=== PATIENT | male | born 1955 | race Caucasian/White ===

== ENCOUNTER 2016-11-29 12:15 | Inpatient (IN) | payer OTHER ==
[2016-11-29] MEDS ORDERED: ACETAMINOPHEN 325 MG TAB PO PRN (12:43)
[2016-11-29] MEDS ORDERED: DOFETILIDE 0.25 MG CAP PO SCH (13:00)
[2016-11-29 13:21] LABS: % IMMATURE GRANULYOCYTES 0.2 % (0.0-1.1); ABSOLUTE IMMATURE GRANULOCYTES 0.01 10^3/uL (0.00-0.10); ADD DIFF? NO; ADD MORPH? NO; ADD SCAN? NO; ATYPICAL LYMPHOCYTE FLAG 10 (0-99); FRAGMENT RBC FLAG 0 (0-99); HEMATOCRIT 41.7 % (40.0-51.0); HEMOGLOBIN 14.8 g/dL (13.7-17.5); LEFT SHIFT FLG 0 (0-99); LIPEMIA HEMOLYSIS FLAG 90 (0-99); MEAN CELL HEMOGLOBIN 31.8 pg (27.9-34.1); MEAN CELL HEMOGLOBIN CONCENTR. 35.5 g/dL (32.4-36.7); MEAN CELL VOLUME 89.5 fL (81.5-99.8); MEAN PLATELET VOLUME 10.8 fL (8.7-11.7); PLATELET CLUMPS FLAG 10 (0-99); PLATELET COUNT 174 10^3/uL (150-400); RED BLOOD CELL COUNT 4.66 10^6/uL (4.40-6.38); RED CELL DISTRIBUTION WIDTH 11.9 % (11.5-15.2)
[2016-11-29 13:35] LABS: INR 1.22 (0.83-1.16); PROTIME(PATIENT) 15.4 SEC (12.0-15.0)
[2016-11-29 13:36] LABS: APTT 28.1 SEC (23.0-38.0)
[2016-11-29 13:43] LABS: ANION GAP 11 mEq/L (8-16); CALCIUM 8.7 mg/dL (8.5-10.4); CARBON DIOXIDE 24 mEq/l (22-31); CHLORIDE 106 mEq/L (97-110); CREATININE 0.8 mg/dL (0.7-1.3); GLOMERULAR FILTRATION RATE > 60; GLUCOSE 88 mg/dL (70-100); POTASSIUM 4.3 mEq/L (3.5-5.2); SODIUM 141 mEq/L (134-144)
--- NOTE | 2016-11-29 13:52 | CPEKG ---
Heart Rate: 87 RR Interval: 690 P-R Interval: 176 QRSD Interval: 144 QT Interval: 432 QTC Interval: 520 P [place]: 0 QRS [place]: 265 T Wave [place]: 40 EKG Severity - ABNORMAL ECG - EKG Impression: A-V DUAL-PACED COMPLEXES EKG Impression: PVC Electronically Signed By: Geronimo Monroe 29-Nov-2016 17:44:14
[2016-11-29] MEDS: DOFETILIDE 0.125 MG CAP PO SCH ×2 (14:25→22:06)
--- NOTE | 2016-11-29 14:27 | PDCARPN ---
Cardiology Progress Note Chief Complaint: PAF Assessment/Plan: Assessment/plan: Please see office note in chart for details. Jose Antonio is a 60 y/o M who presented in 10/31 with a CVA, atrial fibrillation and EF of 20%. He had normal coronaries at that time. He also has a history of NSVT s/p ICD. His EF has improved to 40%. He was found to be in a.fib for the past 2 months with associated head fogginess and COHEN. He is admitted today for tikosyn loading. 11/29/16 14:23 Subjective: Pt denies any CP, SOB, of dizziness. Objective: Vital Signs (8 Hrs) Temp Pulse Resp BP Pulse Ox 11/29/16 12:38 36.7 C 76 16 98/60 L 96 Intake/Output (24 Hrs) 11/28/16 11/29/16 11/30/16 05:59 05:59 05:59 Other: Weight 78.2 kg Result Diagrams: 11/29/16 13:10 11/29/16 13:10 EKG: a.fib with V pacing - Physical Exam Constitutional: WDWN Cardiovascular: regular rate and rhythm, systolic murmur Respiratory: clear to auscultate bilat, no crackles, no wheezes Skin: no edema Neurologic: AAOx3 ICD10 Worksheet Patient Problems: Problems Problem Status Diagnosed Bradycardia Acute CVA (cerebral vascular accident) Acute Elevated troponin Acute
--- NOTE | 2016-11-29 16:18 | CPEKG ---
Heart Rate: 78 RR Interval: 769 QRSD Interval: 130 QT Interval: 456 QTC Interval: 520 QRS [place]: 238 T Wave [place]: 43 EKG Severity - ABNORMAL ECG - EKG Impression: AFIB/FLUT AND V-PACED COMPLEXES Electronically Signed By: Geronimo Monroe 29-Nov-2016 17:43:46
[2016-11-29] MEDS: CARVEDILOL 6.25 MG TAB PO SCH (18:39)
[2016-11-29] MEDS ORDERED: TEMAZEPAM 15 MG CAP PO SCH (21:00)
[2016-11-29] MEDS: LISINOPRIL 5 MG TAB PO SCH (21:18)
[2016-11-29] MEDS: APIXABAN 5 MG TAB PO SCH (21:18)
[2016-11-29] MEDS: TEMAZEPAM 7.5 MG PO SCH (22:29)
--- NOTE | 2016-11-30 00:01 | CPEKG ---
Heart Rate: 75 RR Interval: 800 P-R Interval: 152 QRSD Interval: 138 QT Interval: 488 QTC Interval: 546 P [place]: 108 QRS [place]: 240 T Wave [place]: 49 EKG Severity - ABNORMAL ECG - EKG Impression: ATRIAL-VENTRICULAR DUAL-PACED RHYTHM Electronically Signed By: Geronimo Monroe 01-Dec-2016 08:35:05
[2016-11-30 05:52] LABS: ANION GAP 5 mEq/L (8-16); CALCIUM 8.5 mg/dL (8.5-10.4); CARBON DIOXIDE 28 mEq/l (22-31); CHLORIDE 106 mEq/L (97-110); CREATININE 0.9 mg/dL (0.7-1.3); GLOMERULAR FILTRATION RATE > 60; GLUCOSE 86 mg/dL (70-100); POTASSIUM 4.2 mEq/L (3.5-5.2); SODIUM 139 mEq/L (134-144)
[2016-11-30 05:58] LABS: INR 1.25 (0.83-1.16); PROTIME(PATIENT) 15.7 SEC (12.0-15.0)
[2016-11-30] MEDS: ATORVASTATIN CALCIUM 40 MG TAB PO SCH (09:40)
[2016-11-30] MEDS: LISINOPRIL 5 MG TAB PO SCH ×2 (09:40→20:18)
[2016-11-30] MEDS: APIXABAN 5 MG TAB PO SCH ×2 (09:40→20:18)
[2016-11-30] MEDS: CARVEDILOL 6.25 MG TAB PO SCH ×2 (09:41→18:50)
[2016-11-30] MEDS: DOFETILIDE 0.125 MG CAP PO SCH ×2 (09:51→20:18)
--- NOTE | 2016-11-30 10:46 | SOAPPROG ---
SOAP Progress Note Assessment/Plan: Assessment/Plan: This is a 60 yr old male with past history of CVA, EF 40% BiV ICD, PAF. PAF: On OAC. Tikosyn loading., he is tolerating tikosyn based on his EKG as well as symptomatology CHF: Euvolemic Device: [place] well. Wound site is clean 11/30/16 10:44 Subjective: Pt feeling fine. No side effects from med Objective: Vital Signs Temp Pulse Resp BP Pulse Ox 36.6 C 74 18 112/72 96 11/30/16 07:50 11/30/16 07:50 11/30/16 07:50 11/30/16 07:50 11/30/16 07:50 Laboratory Results 11/29/16 13:10 11/30/16 05:22 11/29/16 11/30/16 12/01/16 05:59 05:59 05:59 Intake Total 750 Balance 750 PT 15.7 SEC (12.0-15.0) H 11/30/16 05:22 INR 1.25 (0.83-1.16) H 11/30/16 05:22 Physical Exam - Physical Exam General Appearance: alert, no apparent distress EENT: PERRL/EOMI, normal ENT inspection Neck: full range of motion, supple Respiratory: lungs clear, normal breath sounds, No respiratory distress Cardiac/Chest: regular rate, rhythm, No edema, No gallop Abdomen: normal bowel sounds, non-tender, soft Skin: normal color, warm/dry ICD10 Worksheet Patient Problems: Problems Problem Status Diagnosed Bradycardia Acute CVA (cerebral vascular accident) Acute Elevated troponin Acute
--- NOTE | 2016-11-30 12:23 | CPEKG ---
Heart Rate: 76 RR Interval: 789 P-R Interval: 164 QRSD Interval: 132 QT Interval: 488 QTC Interval: 549 P [place]: 120 QRS [place]: 240 T Wave [place]: 48 EKG Severity - ABNORMAL ECG - EKG Impression: ATRIAL-VENTRICULAR DUAL-PACED RHYTHM Electronically Signed By: Geronimo Monroe 01-Dec-2016 08:35:00
[2016-11-30] MEDS: TEMAZEPAM 7.5 MG PO SCH (22:03)
--- NOTE | 2016-11-30 22:29 | CPEKG ---
Heart Rate: 73 RR Interval: 822 P-R Interval: 172 QRSD Interval: 130 QT Interval: 484 QTC Interval: 534 P [place]: 116 QRS [place]: 238 T Wave [place]: 54 EKG Severity - ABNORMAL ECG - EKG Impression: ATRIAL-VENTRICULAR DUAL-PACED RHYTHM Electronically Signed By: Geronimo Monroe 01-Dec-2016 08:34:54
[2016-12-01] MEDS ORDERED: DOFETILIDE 0.25 MG CAP PO SCH
[2016-12-01 07:35] VITALS: BP 109/72; PULSE 74; RESP 12; TEMP 98.2; O2SAT 95
[2016-12-01] MEDS: LISINOPRIL 5 MG TAB PO SCH (08:50)
[2016-12-01] MEDS: CARVEDILOL 6.25 MG TAB PO SCH (08:50)
[2016-12-01] MEDS: ATORVASTATIN CALCIUM 40 MG TAB PO SCH (08:50)
[2016-12-01] MEDS: APIXABAN 5 MG TAB PO SCH (08:50)
[2016-12-01] MEDS: DOFETILIDE 0.125 MG CAP PO SCH (08:51)
--- NOTE | 2016-12-01 11:00 | GDS ---
[f rep st] DISCHARGE SUMMARY HISTORY: This is a 60-year-old patient with past medical history of CVA, atrial fibrillation, ejecti on fraction of 20%, normal coronaries, whose EF did not recover adequately and then a Bi V ICD was im planted, after which the patient continued to have atrial fibrillation and some mental fogginess, hea daches on and off and dyspnea and hence, it was decided to attempt Tikosyn since he is too young for amiodarone and his ejection fraction is lower than 40%. PAST MEDICAL HISTORY: CHF NYHA class 2, AFib, anxiety, Bi V AICD, cardiomyopathy, CVA, nonsustained VT. PAST SURGICAL HISTORY: Arthroscopic shoulder surgery. MEDICATIONS: Atorvastatin 40 once a day, Coreg 6.25, Eliquis 5 mg twice a day, lisinopril 5 mg once a day, temazepam as needed. ALLERGIES: None. 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 No significant alcohol use. Nonsmoker. REVIEW OF SYSTEMS: Other than above, negative. PHYSICAL EXAM: VITAL SIGNS: Blood pressure 110/70, pulse of 80, respiratory rate 16. HEENT: Pupil s equal, reacting to light and accommodating. NECK: No lymphadenopathy. No thyromegaly. No JVD. CHEST: Good air entry bilaterally, equal. No rales, rhonchi. CARDIOVASCULAR: S1, S2. Irregular. No murmurs. ABDOMEN: Soft, nontender. No guarding. Bowel sounds present. EXTREMITIES: No edema . HOSPITAL COURSE: The patient was admitted to the hospital and was started on Tikosyn 500 mcg b.i.d. Serial EKGs were taken. The JT point did not change significantly. The patient continued to do wel l without any side effects from the medication. Hence, it was decided to discharge the patient to [facility]. DISCHARGE MEDICATIONS: Coreg 6.25 mg p.o. b.i.d., Eliquis 5 mg p.o. b.i.d., atorvastatin 40 mg daily ,temazepam as needed, Tikosyn 0.5 mg p.o. b.i.d., and lisinopril 5 mg p.o. b.i.d. DISCHARGE INSTRUCTIONS: Patient will be given instructions regarding drugs to avoid for long QT. He will be scheduled for an appointment in 2 weeks. Thank you for letting us participate in the patient's care. Feel free to call us for questions. /[id number]/MODL
--- NOTE | 2016-12-01 11:17 | CPEKG ---
Heart Rate: 73 RR Interval: 822 P-R Interval: 168 QRSD Interval: 138 QT Interval: 512 QTC Interval: 565 P [place]: 125 QRS [place]: 235 T Wave [place]: 41 EKG Severity - ABNORMAL ECG - EKG Impression: ATRIAL-VENTRICULAR DUAL-PACED COMPLEXES EKG Impression: prolonged QT interval Electronically Signed By: Geronimo Monroe 02-Dec-2016 07:41:47
== END 2016-12-01 11:58 | disposition home or self-care (01) | DRG 310 ==
LOC: F2W 12:15
PROVIDERS: ADMIT Internal Medicine Cardiovascular Disease; ATTEND Internal Medicine Cardiovascular Disease
DX: I48.91 Unspecified atrial fibrillation (principal); Z86.73 Personal history of transient ischemic attack (TIA), and cerebral infarction without residual deficits; Z95.810 Presence of automatic (implantable) cardiac defibrillator; I50.9 Heart failure, unspecified; F41.9 Anxiety disorder, unspecified; I42.9 Cardiomyopathy, unspecified

== ENCOUNTER 2017-04-27 18:31 | Observation (INO) | payer OTHER ==
--- NOTE | 2017-04-27 18:40 | CPEKG ---
Heart Rate: 72 RR Interval: 833 P-R Interval: 172 QRSD Interval: 130 QT Interval: 476 QTC Interval: 522 P [place]: 133 QRS [place]: 239 T Wave [place]: 50 EKG Severity - ABNORMAL ECG - EKG Impression: ATRIAL-VENTRICULAR DUAL-PACED RHYTHM Electronically Signed By: Maurilio Victor 29-Apr-2017 09:03:39
--- NOTE | 2017-04-27 18:48 | EDPHY ---
H & P Time Seen by Provider: 04/27/17 18:36 HPI/ROS: CHIEF COMPLAINT: Memory difficulty HISTORY OF PRESENT ILLNESS: Patient is a 61-year-old male with a history of CVA , atrial fibrillation on Eliquis who to the [facility] emergency department with memory difficulties. The patient states he went to the store at 450pm to obtain dinner for the hockey game. While in the store he could not recall w when he was attempting to by. He did not know with A needed. He also was unable to remember his medical history. He stated he knew he had a pacemaker but was not sure the reason for pacemaker placement. He drove his best home. His girlfriend came to his house and felt that he was having difficulty with memory. She recommended they go to the hospital but initially the patient refused. He had more short-term memory issues and they brought him to the emergency department. Patient states he feels slightly "slow" but has no other complaints. No headache. No weakness or numbness. Patient states at baseline he has decreased right lower visual field deficit from his previous stroke. This is unchanged. No nausea vomiting. No chest pain or shortness of breath. REVIEW OF SYSTEMS: My complete review of systems is negative except as mentioned in the HPI. 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 He does not use alcohol. He does not smoke. Smoking Status: Never smoked Physical Exam: Vitals noted GENERAL: Well-appearing, in no acute distress, alert. HEENT: Eyes normal to inspection, normal pharynx, no signs of dehydration. NECK: No thyromegaly, no lymphadenopathy, supple. RESPIRATORY: Clear to auscultation bilaterally, no rales, rhonchi or wheezing. Chest wall: AICD in place. CVS: Regular rate and rhythm, no rubs, murmurs, or gallops. ABDOMEN: Soft, nontender, nondistended, no organomegaly. BACK: Normal to inspection, no CVA tenderness. SKIN: Normal color, no rash, warm, dry. No pallor. EXTREMITIES: No pedal edema, no calf tenderness, no Homans sign or cords, no joint swelling. NEURO/PSYCH: Higher functions: Alert and Oriented x3. Normal speech and cognition. Normal mood and affect. Cranial nerves: Normal as tested. Cerebellar: Normal as tested. Good finger to nose, good malp-eg-pacp, normal gait. Peripheral exam: Normal motor exam. Normal sensation. Normal reflexes. NIHSS = 0 Constitutional: Initial Vital Signs Temperature (C) 36.7 C 04/27/17 18:38 Heart Rate 75 04/27/17 18:38 Respiratory Rate 16 04/27/17 18:38 Blood Pressure 115/88 H 04/27/17 18:38 O2 Sat (%) 97 04/27/17 18:38 O2 Delivery Mode Room Air Allergies/Adverse Reactions: No Known Allergies Allergy (Unverified 10/23/15 10:35) Home Medications: Medication Instructions Recorded Apixaban [Eliquis] 5 mg PO BID #60 tab 10/26/15 Atorvastatin Calcium [Lipitor 40 40 mg PO DAILY 11/07/15 mg (*)] Carvedilol [Coreg (*)] 6.25 mg PO BIDMEAL 02/29/16 Lisinopril [Zestril 5 mg (*)] 5 mg PO BID 02/29/16 Temazepam [Restoril 15 MG (*)] 15 mg PO HS 02/29/16 Dofetilide [Tikosyn 0.125 MG (*)] 0.5 mg PO BID #60 cap 12/01/16 Medical Decision Making - Diagnostics Imaging Results: Imaging Impressions Head CT 04/27/17 18:50 Impression: 1. Old infarcts left occipital and right frontal lobes 2. No acute hemorrhage, hydrocephalus, or mass effect. 3. Consider MRI of the brain, without and with contrast enhancement, if there is continued clinical concern. Findings and recommendations discussed with Emergency Department physician, Pearl Ha M.D., at 1930 hours, on April 27, 2017. Final report concurs with initial preliminary interpretation. ED Course/Re-evaluation: In the emergency department I met the patient on arrival. His symptoms started at 4:50 p.m.. However, he has an NIHSS of 0. He is on Eliquis. I do not feel he is a stroke alert. I do not feel he needs tPA at this time. I discussed the plan with the patient. I answered all his questions. An IV was placed. Laboratory studies, EKG and head CT were ordered. CT head: Please refer the dictated report by Dr. Javier Lawson. Old CVA. No acute disease. No bleed. Patient's laboratory studies were unremarkable. I discussed the results with the patient. I answered all his questions. On recheck he had no focal neurologic deficit. Normal neuro exam. I discussed the case with [facility]. They recommended MRI imaging. I discussed this with the patient. He has an AICD. I discussed this with Dr. Hardy from Cardiology. Dr. Hardy is the patient's pedorthist as well as friend. He did not want AICD imaging with MRI. In discussion with Dr. Hardy, the patient will be admitted for further treatment and care. I discussed this with Dr. Vega who agreed to admission. The patient is aware the plan. I answered all his questions. Differential Diagnosis: My differential includes but is not limited to ischemic CVA, hemorrhagic CVA, dissection, aneurysm, electrolyte abnormality, sugar abnormality, dysrhythmia, ACS, acute [place] - Data Points Laboratory Results: Laboratory Results 04/27/17 18:40 04/27/17 18:40 04/27/17 04/27/17 04/27/17 18:40 18:40 18:40 WBC 8.24 10^3/uL 10^3/uL (3.80-9.50) RBC 4.73 10^6/uL 10^6/uL (4.40-6.38) Hgb 15.2 g/dL g/dL (13.7-17.5) POC Hgb Hct 43.7 % % (40.0-51.0) POC Hct MCV 92.4 fL fL (81.5-99.8) MCH 32.1 pg pg (27.9-34.1) MCHC 34.8 g/dL g/dL (32.4-36.7) RDW 12.3 % % (11.5-15.2) Plt Count 142 10^3/uL L 10^3/uL (150-400) MPV 11.7 fL fL (8.7-11.7) Neut % (Auto) 62.7 % % (39.3-74.2) Lymph % (Auto) 27.9 % % (15.0-45.0) [place] % (Auto) 7.3 % % (4.5-13.0) Eos % (Auto) 1.5 % % (0.6-7.6) Baso % (Auto) 0.2 % L % (0.3-1.7) Nucleat RBC Rel Count 0.0 % % (0.0-0.2) Absolute Neuts (auto) 5.17 10^3/uL 10^3/uL (1.70-6.50) Absolute Lymphs (auto) 2.30 10^3/uL 10^3/uL (1.00-3.00) Absolute Monos (auto) 0.60 10^3/uL 10^3/uL (0.30-0.80) Absolute Eos (auto) 0.12 10^3/uL 10^3/uL (0.03-0.40) Absolute Basos (auto) 0.02 10^3/uL 10^3/uL (0.02-0.10) Absolute Nucleated RBC 0.00 10^3/uL 10^3/uL (0-0.01) Immature Gran % 0.4 % % (0.0-1.1) Immature Gran # 0.03 10^3/uL 10^3/uL (0.00-0.10) PT 14.1 SEC SEC (12.0-15.0) INR 1.10 (0.83-1.16) APTT 27.4 SEC SEC (23.0-38.0) POC Sodium Sodium 136 mEq/L mEq/L (134-144) POC Potassium Potassium 4.4 mEq/L mEq/L (3.5-5.2) POC Chloride Chloride 104 mEq/L mEq/L (97-110) Carbon Dioxide 23 mEq/l mEq/l (22-31) Anion Gap 9 mEq/L mEq/L (8-16) POC BUN BUN 28 mg/dL H mg/dL (7-23) Creatinine 1.0 mg/dL mg/dL (0.7-1.3) POC Creatinine Estimated GFR > 60 Glucose 134 mg/dL H mg/dL (70-100) POC Glucose Calcium 8.7 mg/dL mg/dL (8.5-10.4) Troponin I < 0.012 ng/mL ng/mL (0-0.034) 04/27/17 18:34 WBC RBC Hgb POC Hgb 15.0 gm/dL gm/dL (13.7-17.5) Hct POC Hct 44 % % (40-51) MCV MCH MCHC RDW Plt Count MPV Neut % (Auto) Lymph % (Auto) [place] % (Auto) Eos % (Auto) Baso % (Auto) Nucleat RBC Rel Count Absolute Neuts (auto) Absolute Lymphs (auto) Absolute Monos (auto) Absolute Eos (auto) Absolute Basos (auto) Absolute Nucleated RBC Immature Gran % Immature Gran # PT INR APTT POC Sodium 139 mEq/L mEq/L (134-144) Sodium POC Potassium 4.3 mEq/L mEq/L (3.3-5.0) Potassium POC Chloride 101 mEq/L mEq/L (97-110) Chloride Carbon Dioxide Anion Gap POC BUN 28 mg/dL H mg/dL (7-23) BUN Creatinine POC Creatinine 1.1 mg/dL mg/dL (0.7-1.3) Estimated GFR Glucose POC Glucose 137 mg/dL H mg/dL (70-100) Calcium Troponin I Medications Given: Discontinued Medications Sodium Chloride (Ns) 500 mls @ 500 mls/hr IV EDNOW ONE PRN Reason: Protocol Stop: 04/27/17 19:49 Last Admin: 04/27/17 18:59 Dose: 500 mls Point of Care Test Results: 04/27/17 18:34 POC Sodium 139 POC Potassium 4.3 POC Chloride 101 POC BUN 28 H POC Creatinine 1.1 POC Glucose 137 H Departure - Departure Disposition: [facility] Inpatient Acute Clinical Impression: Memory difficulty Condition: Good
[2017-04-27] MEDS ORDERED: NS 500 ML IV ONE (18:50)
[2017-04-27 19:03] LABS: % IMMATURE GRANULYOCYTES 0.4 % (0.0-1.1); ABSOLUTE IMMATURE GRANULOCYTES 0.03 10^3/uL (0.00-0.10); ADD DIFF? NO; ADD MORPH? NO; ADD SCAN? NO; ATYPICAL LYMPHOCYTE FLAG 0 (0-99); FRAGMENT RBC FLAG 0 (0-99); HEMATOCRIT 43.7 % (40.0-51.0); HEMOGLOBIN 15.2 g/dL (13.7-17.5); LEFT SHIFT FLG 0 (0-99); LIPEMIA HEMOLYSIS FLAG 90 (0-99); MEAN CELL HEMOGLOBIN 32.1 pg (27.9-34.1); MEAN CELL HEMOGLOBIN CONCENTR. 34.8 g/dL (32.4-36.7); MEAN CELL VOLUME 92.4 fL (81.5-99.8); MEAN PLATELET VOLUME 11.7 fL (8.7-11.7); PLATELET CLUMPS FLAG 0 (0-99); PLATELET COUNT 142 10^3/uL (150-400); RED BLOOD CELL COUNT 4.73 10^6/uL (4.40-6.38); RED CELL DISTRIBUTION WIDTH 12.3 % (11.5-15.2)
[2017-04-27 19:11] LABS: ANION GAP 9 mEq/L (8-16); CALCIUM 8.7 mg/dL (8.5-10.4); CARBON DIOXIDE 23 mEq/l (22-31); CHLORIDE 104 mEq/L (97-110); GLOMERULAR FILTRATION RATE > 60; GLUCOSE 134 mg/dL (70-100); POTASSIUM 4.4 mEq/L (3.5-5.2); SODIUM 136 mEq/L (134-144)
[2017-04-27 19:15] LABS: INR 1.1 (0.83-1.16); PROTIME(PATIENT) 14.1 SEC (12.0-15.0)
[2017-04-27 19:16] LABS: APTT 27.4 SEC (23.0-38.0)
[2017-04-27 19:22] LABS: TROPONIN I < 0.012 ng/mL (0-0.034)
[2017-04-27] MEDS ORDERED: ONDANSETRON DISINTEGRATING 4 MG TAB PO PRN (22:44)
[2017-04-27] MEDS ORDERED: ONDANSETRON 4 MG/2 ML VIAL IVP PRN (22:44)
[2017-04-27] MEDS ORDERED: ACETAMINOPHEN 325 MG TAB PO PRN (22:44)
[2017-04-27] MEDS ORDERED: NS 1,000 ML IV SCH (22:45)
[2017-04-27] MEDS ORDERED: DOFETILIDE 0.5 MG CAP PO SCH (23:00)
[2017-04-27] MEDS ORDERED: APIXABAN 5 MG TAB PO SCH (23:00)
[2017-04-27] MEDS: CARVEDILOL 6.25 MG TAB PO SCH (23:36)
[2017-04-27] MEDS ORDERED: TEMAZEPAM 7.5 MG CAP PO SCH (23:45)
--- NOTE | 2017-04-28 00:54 | PDGENHP ---
History and Physical - Chief Complaint Acute confusion - History of Present Illness primary care provider: Dr. Nair Primary water main inspector: Dr. Weir HPI: 61-year-old male presenting with acute confusion characterized as slowed poor short-term memory with onset of symptoms at rest on the late morning of presentation, duration approximately 1 hour, associated with some situational anxiety. the patient reports that prior to his onset of symptoms, he had otherwise been feeling well and he is engage 35 minutes walk on the morning of this presentation. Denies any infectious symptoms he reports he has been taking all of his home medications. He also denies any overt palpitations or any general malaise which generally occurs when he is in atrial fibrillation. His symptoms were witnessed by his girlfriend and she became concerned prompting him to seek medical attention. At the time of this interview, the patient has been experiencing some general discomfort and racing heart for approximately 1 hour. He is otherwise denying any lightheadedness, denies any paresthesias or paresis, denies any worsening of his right-sided visual field cuts. Of note, he does endorse that his character of confusion is very similar to that experienced with his CVA 18 months ago. History Information - Allergies/Home Medication List Allergies/Adverse Reactions: No Known Allergies Allergy (Unverified 10/23/15 10:35) Home Medications: Atorvastatin Calcium [Lipitor 40 mg (*)] 40 mg PO DAILY 11/07/15 [Last Taken 10/03 09:00] Carvedilol [Coreg (*)] 6.25 mg PO BIDMEAL 02/29/16 [Last Taken 04/27/17 20:00] Lisinopril [Zestril 5 mg (*)] 5 mg PO BID 02/29/16 [Last Taken 04/27/17 20:00] Dofetilide [Tikosyn 0.5 MG (*)] 0.5 mg PO BID 04/27/17 [Last Taken 04/27/17 20: 00] Temazepam 7.5 mg PO DAILY 04/27/17 [Last Taken 04/26/17 22:00] I have personally reviewed and updated: family history, medical history, social history, surgical history - Past Medical History atrial fibrillation ( Paroxysmal), CHF ( nonischemic cardiomyopathy with an ejection fraction around 20%, normal coronary arteries), CVA ( bilateral infarcts secondary to atrial fibrillation, currently on Eliquis, Coreg, Tikosyn) Additional medical history: nonsustained ventricular tachycardia - Surgical History Additional surgical history: AICD, shoulder surgery - Family History Additional family history: sibling with CVA, sibling with AFib, mother with atrial fibrillation, grandparent with atrial fibrillation - Social History Smoking Status: Never smoked Alcohol Use: Occasionally (last alcohol consumption was evening prior to this presentation, two alcoholic beverages) Drug Use: None Additional social history: patient reports he is physically active, takes long walks daily Review of Systems ROS: 10pt was reviewed & negative except for what was stated in HPI & below EENMT: Reports: other ( chronic right-sided visual field deficit) Neurological: Reports: other ( confusion) Physical Exam Temp Pulse Resp BP Pulse Ox 36.6 C 74 16 117/78 95 04/27/17 23:19 04/27/17 23:19 04/27/17 23:19 04/27/17 23:19 04/27/17 23:19 O2 (L/minute) 0 Constitutional: no apparent distress, appears nourished, not in pain Eyes: PERRL, anicteric sclera, EOMI Ears, Nose, Mouth, Throat: moist mucous membranes, hearing normal, ears appear normal, no oral mucosal ulcers Cardiovascular: irregularly irregular, tachycardia ( intermittent), No systolic murmur, No edema Respiratory: no respiratory distress, no rales or rhonchi, clear to auscultation Gastrointestinal: normoactive bowel sounds, soft, non-tender abdomen, no palpable masses Skin: warm, normal color, no rashes or abrasions, no fluctuance, no induration, No mottled Neurologic: AAOx3, sensation intact bilaterally, CN II-XII Intact ( with the exception of right sided visual field deficits), No weakness ( motor strength 5/ 5 bilateral upper and lower extremities) Psychiatric: interacting appropriately, not anxious, not encephalopathic, thought process linear, No agitated Lab Data & Imaging Review 04/27/17 18:40 04/27/17 18:40 WBC 8.24 10^3/uL (3.80-9.50) 04/27/17 18:40 RBC 4.73 10^6/uL (4.40-6.38) 04/27/17 18:40 Hgb 15.2 g/dL (13.7-17.5) 04/27/17 18:40 POC Hgb 15.0 gm/dL (13.7-17.5) 04/27/17 18:34 Hct 43.7 % (40.0-51.0) 04/27/17 18:40 POC Hct 44 % (40-51) 04/27/17 18:34 MCV 92.4 fL (81.5-99.8) 04/27/17 18:40 MCH 32.1 pg (27.9-34.1) 04/27/17 18:40 MCHC 34.8 g/dL (32.4-36.7) 04/27/17 18:40 RDW 12.3 % (11.5-15.2) 04/27/17 18:40 Plt Count 142 10^3/uL (150-400) L 04/27/17 18:40 MPV 11.7 fL (8.7-11.7) 04/27/17 18:40 Neut % (Auto) 62.7 % (39.3-74.2) 04/27/17 18:40 Lymph % (Auto) 27.9 % (15.0-45.0) 04/27/17 18:40 [place] % (Auto) 7.3 % (4.5-13.0) 04/27/17 18:40 Eos % (Auto) 1.5 % (0.6-7.6) 04/27/17 18:40 Baso % (Auto) 0.2 % (0.3-1.7) L 04/27/17 18:40 Nucleat RBC Rel Count 0.0 % (0.0-0.2) 04/27/17 18:40 Absolute Neuts (auto) 5.17 10^3/uL (1.70-6.50) 04/27/17 18:40 Absolute Lymphs (auto) 2.30 10^3/uL (1.00-3.00) 04/27/17 18:40 Absolute Monos (auto) 0.60 10^3/uL (0.30-0.80) 04/27/17 18:40 Absolute Eos (auto) 0.12 10^3/uL (0.03-0.40) 04/27/17 18:40 Absolute Basos (auto) 0.02 10^3/uL (0.02-0.10) 04/27/17 18:40 Absolute Nucleated RBC 0.00 10^3/uL (0-0.01) 04/27/17 18:40 Immature Gran % 0.4 % (0.0-1.1) 04/27/17 18:40 Immature Gran # 0.03 10^3/uL (0.00-0.10) 04/27/17 18:40 PT 14.1 SEC (12.0-15.0) 04/27/17 18:40 INR 1.10 (0.83-1.16) 04/27/17 18:40 APTT 27.4 SEC (23.0-38.0) 04/27/17 18:40 POC Sodium 139 mEq/L (134-144) 04/27/17 18:34 Sodium 136 mEq/L (134-144) 04/27/17 18:40 POC Potassium 4.3 mEq/L (3.3-5.0) 04/27/17 18:34 Potassium 4.4 mEq/L (3.5-5.2) 04/27/17 18:40 POC Chloride 101 mEq/L (97-110) 04/27/17 18:34 Chloride 104 mEq/L (97-110) 04/27/17 18:40 Carbon Dioxide 23 mEq/l (22-31) 04/27/17 18:40 Anion Gap 9 mEq/L (8-16) 04/27/17 18:40 POC BUN 28 mg/dL (7-23) H 04/27/17 18:34 BUN 28 mg/dL (7-23) H 04/27/17 18:40 Creatinine 1.0 mg/dL (0.7-1.3) 04/27/17 18:40 POC Creatinine 1.1 mg/dL (0.7-1.3) 04/27/17 18:34 Estimated GFR > 60 04/27/17 18:40 Glucose 134 mg/dL (70-100) H 04/27/17 18:40 POC Glucose 137 mg/dL (70-100) H 04/27/17 18:34 Calcium 8.7 mg/dL (8.5-10.4) 04/27/17 18:40 Troponin I < 0.012 ng/mL (0-0.034) 04/27/17 18:40 Visualized and Interpreted EKG results: Yes EKG Interpretation: Positive for: other ( AV dual paced) Assessment & Plan Assessment: 61-year-old male presenting with acute confusion in the setting of known paroxysmal atrial fibrillation, prior CVA Plan: 1. Confusion. acute, new problem this provider, further workup indicated. Unclear whether this is a true transient ischemic attack versus volume mediated in the setting of possible AFib RVR and hypovolemia from his walker earlier in the day. -give IV normal saline, repeat BUN and creatinine in a.m. -interrogate pacemaker to determine whether patient was in AFib RVR immediately prior to or during the episode in question -continue monitor on telemetry -get Neurology consultation in a.m. -head CT demonstrating oldleft occipital and right frontal infarcts, patient has an AICD which is not MRI compatible 2. Paroxysmal atrial fibrillation. Intermittent acute rapid ventricular response, patient reports he has been well controlled on his antiarrhythmic and beta-argelia medications -unclear why patient is currently experiencing worse control than his baseline -I have discussed patient's presentation with Dr. Brice Vega, he has signed out the patient to me for evaluation at the beginning of my shift, he has reported to me that Dr. Weir has been contacted and will consult with the patient in the a.m. -continue Tikosyn, continue carvedilol, continue Eliquis 3. Nonischemic cardiomyopathy. Patient has chronic systolic congestive heart failure without any evidence of exacerbation, ejection fraction 20% per review of outside records including 12/01/[address] Weir regarding patient's most recent hospitalization for Tikosyn load in the setting of symptomatic mental fogginess believed to be secondary to intermittent atrial fibrillation Diet. Cardiac Prophylaxis. High risk patient, currently on Eliquis Code. Full Disposition. Anticipated discharge is 04/28/2017, pending further evaluation as outlined above.
[2017-04-28 05:21] LABS: ALANINE AMINOTRANSFERASE 34 IU/L (21-72); ALBUMIN 3.3 g/dL (3.5-5.0); ALKALINE PHOSPHATASE 57 IU/L (38-126); ANION GAP 7 mEq/L (8-16); ASPARTATE AMINOTRANSFERASE 24 IU/L (17-59); BILIRUBIN,TOTAL 0.7 mg/dL (0.1-1.4); CALCIUM 8.9 mg/dL (8.5-10.4); CARBON DIOXIDE 23 mEq/l (22-31); CHLORIDE 108 mEq/L (97-110); GLOMERULAR FILTRATION RATE > 60; GLUCOSE 87 mg/dL (70-100); POTASSIUM 4.3 mEq/L (3.5-5.2); SODIUM 138 mEq/L (134-144); TOTAL PROTEIN 5.7 g/dL (6.3-8.2)
[2017-04-28] MEDS: APIXABAN 5 MG TAB PO SCH ×2 (08:42→19:52)
[2017-04-28] MEDS: ATORVASTATIN CALCIUM 40 MG TAB PO SCH (08:42)
[2017-04-28] MEDS: CARVEDILOL 6.25 MG TAB PO SCH ×3 (08:42→19:52)
[2017-04-28] MEDS: DOFETILIDE 0.5 MG CAP PO SCH ×2 (08:43→19:53)
--- NOTE | 2017-04-28 09:05 | CPEKG ---
Heart Rate: 81 RR Interval: 741 P-R Interval: 153 QRSD Interval: 142 QT Interval: 480 QTC Interval: 558 P [place]: 110 QRS [place]: 213 T Wave [place]: 65 EKG Severity - ABNORMAL ECG - EKG Impression: A-V DUAL-PACED COMPLEXES W/ SOME INHIBITION Electronically Signed By: Tony Sauceda 28-Apr-2017 10:39:37
[2017-04-28 09:29] LABS: CREATINE KINASE-MB FRACTION 3.08 ng/mL (0-3.19); TROPONIN I < 0.012 ng/mL (0-0.034)
[2017-04-28 15:18] VITALS: RESP 14; TEMP 97.8; O2SAT 96
--- NOTE | 2017-04-28 19:40 | GCON ---
[f rep st] CONSULTATION REFERRING PHYSICIAN: Hector Weir MD CHIEF COMPLAINT: Amnestic spell. 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 My colleague, Dr. Menchaca , evaluated him at that time. He is maintained on Eliquis and on anti dysrhythmic therapy. He has been doing well. 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 Since being on anticoagulation, he has had no further events until yesterday. Friday night, hours before the spell occurred, the patient had had sexual intercourse, which he had not had in 2 months. He also smoked a little cannabis and had 2 whiskey drinks, along with temazepam for sleep. Then, Friday morning, he went for a walk and played some pool, and then came home and went to the grocery store, and realized he did not remember what kind of steak or meat he would like to buy. He just felt confused or specifically had decreased access to his long-term memory. He then could not remember what kind of neurologic problems he had had in the past. At no time did he have any focal weakness, numbness, visual field cut, or language disturbance. He came home, and his girlfriend helped evaluate him, and saw no focal abnormalities when she viewed him, such as facial droop or speech abnormalities, etc. She corroborated that the patient simply had trouble forming new memories, and accessing old memories for about 2 hours. He did repeat 1 or 2 questions over and over, and the spell resolved around 2 hours, slowly, without any further focal symptoms or new symptoms. Head CT in the ER showed no acute changes. Old infarcts were visible. He has a pacemaker, and cannot have an MRI. REVIEW OF SYSTEMS: Ten-point review of systems was only pertinent as in the HPI. PHYSICAL EXAMINATION: VITAL SIGNS: Blood pressure is 106/82, temperature 36.9 , O2 sats 97%. GENERAL: No acute distress. Very pleasant. NEUROLOGIC: Higher mental function: Awake and alert. No aphasia. Cranial nerves: Face is symmetric. Extraocular movements are full. Motor exam: No focal weakness or convulsive activity. Coordination: Normal in upper and lower extremities. IMPRESSION AND PLAN: 1. Transient amnesia The patient's clinical history best fits with transient global amnesia. He may have had some predisposing factors with sexual intercourse and the use of psychotropic medications, which can head inhibit memory. We discussed at length. I am reassured by his negative head CT. He can discuss with Dr. Weir regarding interrogation of his pacemaker during that time. However, he denies any palpitations or typical symptoms of atrial fibrillation, which he is familiar with. To complete the evaluation, we will obtain a CT angiography of the head and neck with contrast to exclude any dissection or large vessel abnormalities. If the angiography is unremarkable, he can discharge home on Eliquis, and will follow up with me as an outpatient, at which time, we will do an EEG to exclude any epileptiform discharges. Thank you for this consultation. 70 total minutes floor time today reviewing past medical history, current electronic health record and testing available, CT images, and in direct counseling with the patient and his girlfriend. /[id number]/MODL MTDD
--- NOTE | 2017-04-28 19:50 | GDS ---
[f rep st] DISCHARGE SUMMARY DISCHARGE DIAGNOSES: 1. Transient confusional episode of unclear etiology. 2. History of paroxysmal atrial fibrillation. 3. History of nonischemic cardiomyopathy. HOSPITAL COURSE AND STAY BY PROBLEM: Transient confusional episode: The patient was admitted to [facility], where his confusion quickly resolved. A head CT done on admission showed no acute hemor rhage, hydrocephalus, or mass effect. Prior to discharge, I did discuss case with Dr. Parham, who has yet to see the patient but plans to see him prior to discharge. He agrees that his symptoms are unl ikely due to a TIA. PHYSICAL EXAM: VITAL SIGNS: On day of discharge, blood pressure 92/66, pulse 88, respiratory rate 14, O2 sat 96% on room air. GENERAL: No acute distress. HEART: S1, S2. LUNGS: Clear. NEURO: Cranial nerves 2-12 grossly intact. No focal motor or sensory deficits. SKIN: Clear. No rashes. PERTINENT LABORATORIES AND STUDIES DONE THIS HOSPITAL STAY: Head CT done 04/27/2017, refer to adri t. DISCHARGE MEDICATIONS: Please refer to discharge medication reconciliation in [facility] for details. DISCHARGE INSTRUCTIONS: The patient will be discharged from the hospital. He should follow up with his primary care provider next week for routine hospital followup. He should also see his cardiolo gist and follow up with Dr. Parham from Neurology as directed. /[id number]/MODL
[2017-04-28 19:53] VITALS: BP 112/68; PULSE 76
== END 2017-04-28 20:48 | disposition home or self-care (01) ==
LOC: F3N 21:34
PROVIDERS: ADMIT Internal Medicine; ATTEND Internal Medicine
DX: R41.3 Other amnesia (principal); Z86.73 Personal history of transient ischemic attack (TIA), and cerebral infarction without residual deficits; I48.0 Paroxysmal atrial fibrillation; Z79.01 Long term (current) use of anticoagulants; Z95.810 Presence of automatic (implantable) cardiac defibrillator; I42.9 Cardiomyopathy, unspecified
CPT/HCPCS: 70450; 70496; 70498; 92523; 93005; G0378; 82947-QW

== ENCOUNTER → 2017-05-26 | Outpatient (CLI) | payer OTHER ==
--- NOTE | 2017-05-28 09:58 | CPEEG ---
[f rep st] ELECTROENCEPHALOGRAM A 4 HOUR VIDEO ELECTROENCEPHALOGRAM. DATE OF STUDY: 05/26/2017 DATE OF INTERPRETATION: 05/27/2017. INTERPRETATION: This 4-hour video EEG recording is normal. There were no potentially epileptogenic abnormalities present during the awake or sleep recordings. During the video EEG monitoring arun smith, the patient did not have any clinical events. REPORT: This 4-hour video EEG contains 10 Hz alpha activity to the posterior head regions. There w as no abnormal activation at rest, during photic stimulation or hyperventilation. The patient becam e drowsy and fell into sustained sleep during the study. During drowsiness and light sleep, the pat ient had a nonspecific activation of bitemporal wicket waves, maximal on left. These are of no clin ical significance. There was no abnormal activation during drowsiness, sleep, or during times of ar ousal. The patient did not have any clinical events during the video EEG monitoring session. /[id number]/MODL
== END ==
LOC: FCPNEURO 09:09
PROVIDERS: ATTEND Psychiatry & Neurology Neurology
DX: R41.3 Other amnesia (principal)